=== PATIENT | male | born 1965 | race Caucasian/White ===

== ENCOUNTER → 2017-07-13 | Outpatient (REF) | payer OTHER | LOC: M LAB REF 13:59 | PROVIDERS: ATTEND Surgery | DX: D18.01 Hemangioma of skin and subcutaneous tissue (principal) ==

== ENCOUNTER → 2018-11-14 | Outpatient (CLI) | payer BC, OTHER ==
[2018-11-14 17:34] LABS: BASO % 0.9 % (0.0-1.0); EOS % 0.7 % (0.0-3.0); HEMOGLOBIN 14.3 g/dl (13.5-17.5); LYMPH # 1.4 10^3/uL (1.5-4.5); LYMPH % 31.6 % (24.0-44.0); MEAN CORPUSCULAR HEMOGLOBIN 26.9 pg (27.0-33.0); MEAN CORPUSCULAR HGB CONC 32.5 g/dl (32.0-36.5); MEAN CORPUSCULAR VOLUME 82.9 fl (80.0-96.0); MONO # 0.5 10^3/uL (0.0-0.8); MONO % 10.9 % (0.0-5.0); NEUTROPHILS # 2.5 10^3/uL (1.8-7.7); NEUTROPHILS % 55.7 % (36.0-66.0); PLATELET COUNT, AUTOMATED 169 10^3/uL (150-450); RED BLOOD COUNT 5.31 10^6/uL (4.30-6.10); WHITE BLOOD COUNT 4.4 10^3/uL (4.0-10.0)
[2018-11-14 17:42] LABS: ALBUMIN 4.1 GM/DL (3.2-5.2); BILIRUBIN,TOTAL 0.5 MG/DL (0.2-1.0); CHOLESTEROL RISK RATIO 5.428 (<5); CREATININE FOR GFR 1.49 MG/DL (0.70-1.30); FREE T4 1.27 NG/DL (0.76-1.46); GLOMERULAR FILTRATION RATE 52.9 (>56); POTASSIUM SERUM 4.7 MEQ/L (3.5-5.1); THYROID STIMULATING HORMONE 0.963 uIU/ML (0.358-3.740); TOTAL PROTEIN 7.1 GM/DL (6.4-8.2)
== END ==
LOC: M SMT 11:13
PROVIDERS: ATTEND Family Medicine
DX: Z13.29 Encounter for screening for other suspected endocrine disorder (principal); Z13.0 Encounter for screening for diseases of the blood and blood-forming organs and certain disorders involving the immune mechanism; Z13.220 Encounter for screening for lipoid disorders

== ENCOUNTER → 2020-07-12 | Outpatient (CLI) | payer BC, OTHER ==
[~2020-07-12] MED LIST: LUNE2TAB23 PO
== END ==
LOC: M LABSMTC 10:15
PROVIDERS: ATTEND Anesthesiology
DX: Z01.812 Encounter for preprocedural laboratory examination (principal); Z20.828 Contact with and (suspected) exposure to other viral communicable diseases

== ENCOUNTER 2020-07-17 06:44 | Day surgery (SDC) | payer BC, OTHER ==
[~2020-07-17] VITALS: Ht 177.8 cm; Wt 78.9 kg
[2020-07-17] MEDS ORDERED: NS 1,000 ML IV ONE (07:00)
[2020-07-17] MEDS ORDERED: propofoL 200 MG/20 ML VIAL As Ordered ONE ×2 (07:18→07:56)
[2020-07-17] MEDS ORDERED: LIDOCAINE 2% 100MG/5ML SDV (FOR ANES.) As Ordered ONE (07:18)
--- NOTE | 2020-07-17 07:57 | ROOR ---
Patient Name: Loyd Mcdowell Procedure Date: 07/17/2020 7:25 AM Date of : 1965 Age: 55 Room: [facility] Gender: Male Note Status: Finalized Procedure: Colonoscopy Indications: Screening for colorectal malignant neoplasm Providers: Jose Olson DO Referring MD: Patricia LORA DO Requesting Provider: Medicines: Propofol per Anesthesia Complications: No immediate complications. Procedure: Pre-Anesthesia Assessment: - Prior to the procedure, a History and Physical was performed, and patient medications and allergies were reviewed. The patient is competent. The risks and benefits of the procedure and the sedation options and risks were discussed with the patient. All questions were answered and informed consent was obtained. Patient identification and proposed procedure were verified by the physician, the nurse, the hydrotreater operator and the library cataloging technician in the endoscopy suite. Mental Status Examination: alert and oriented. Airway Examination: normal oropharyngeal airway and neck mobility. Respiratory Examination: clear to auscultation. CV Examination: normal. Prophylactic Antibiotics: The patient does not require prophylactic antibiotics. Prior Anticoagulants: The patient has taken no previous anticoagulant or antiplatelet agents. ASA Grade Assessment: II - A patient with mild systemic disease. After reviewing the risks and benefits, the patient was deemed in satisfactory condition to undergo the procedure. The anesthesia plan was to use monitored anesthesia care (MAC). Immediately prior to administration of medications, the patient was re-assessed for adequacy to receive sedatives. The heart rate, respiratory rate, oxygen saturations, blood pressure, adequacy of pulmonary ventilation, and response to care were monitored throughout the procedure. The physical status of the patient was re-assessed after the procedure. The Colonoscope was introduced through the anus and advanced to the cecum, identified by the ileocecal valve. The colonoscopy was performed without difficulty. The patient tolerated the procedure well. Findings: Non-bleeding internal hemorrhoids were found during retroflexion. The hemorrhoids were mild, small and Grade I (internal hemorrhoids that do not prolapse). The exam was otherwise without abnormality. Impression: - Non-bleeding internal hemorrhoids. - The examination was otherwise normal. - No specimens collected. Recommendation: - Patient has a contact number available for emergencies. The signs and symptoms of potential delayed complications were discussed with the patient. Return to normal activities tomorrow. Written discharge instructions were provided to the patient. - Repeat colonoscopy in 5-10 years for screening purposes. - Return to my office PRN. Procedure Code(s): --- Professional --- G0121, Colorectal cancer screening; colonoscopy on individual not meeting criteria for high risk Diagnosis Code(s): --- Professional --- Z12.11, Encounter for screening for malignant neoplasm of colon K64.0, First degree hemorrhoids CPT copyright 2019 [employer]. All rights reserved. The codes documented in this report are preliminary and upon surgical coder review may be revised to meet current compliance requirements. Jose Olson DO 07/17/2020 7:57:13 AM Electronically signed by Jose Olson DO Number of Addenda: 0 Note Initiated On: 07/17/2020 7:25 AM Estimated Blood Loss: Estimated blood loss: none.
[2020-07-17] MEDS ORDERED: ePHEDrine SULFATE 25 MG/5 ML(5MG/ML) SYRINGE As Ordered ONE (08:05)
[2020-07-17 08:25] VITALS: BP 100/65
== END 2020-07-17 08:50 | disposition home or self-care (01) ==
LOC: M OPP 06:44
PROVIDERS: ATTEND Surgery
DX: Z12.11 Encounter for screening for malignant neoplasm of colon (principal); K64.0 First degree hemorrhoids; Z79.899 Other long term (current) drug therapy

== ENCOUNTER → 2022-09-04 | Outpatient (CLI) | payer BC, OTHER ==
[2022-09-04 13:44] LABS: BASO % 0.7 % (0.0-1.0); EOS # 0.1 10^3/uL (0.0-0.5); EOS % 1.4 % (0.0-3.0); HEMATOCRIT 44.2 % (42.0-52.0); HEMOGLOBIN 13.8 g/dl (13.5-17.5); LYMPH % 21.8 % (24.0-44.0); MEAN CORPUSCULAR HEMOGLOBIN 26.8 pg (27.0-33.0); MEAN CORPUSCULAR HGB CONC 31.2 g/dl (32.0-36.5); MONO # 0.5 10^3/uL (0.0-0.8); MONO % 11.6 % (2.0-8.0); NEUTROPHILS # 2.8 10^3/uL (1.5-8.5); NEUTROPHILS % 64.3 % (36.0-66.0); PLATELET COUNT, AUTOMATED 149 10^3/uL (150-450); RED BLOOD COUNT 5.14 10^6/uL (4.30-6.10); WHITE BLOOD COUNT 4.4 10^3/uL (4.0-10.0)
[2022-09-04 14:21] LABS: ALBUMIN 4.3 G/DL (3.2-5.2); ALKALINE PHOSPHATASE 70 U/L (46-116); ALT/SGPT 45 U/L (7.0-40); AST/SGOT 35 U/L (<34); BILIRUBIN,TOTAL 0.5 MG/DL (0.3-1.2); BLOOD UREA NITROGEN 21 MG/DL (9-23); CALCIUM LEVEL 9.9 MG/DL (8.5-10.1); CARBON DIOXIDE LEVEL 31 MMOL/L (20-31); CHLORIDE LEVEL 102 MMOL/L (98-107); CHOLESTEROL LEVEL 182 MG/DL (<200); CREATININE FOR GFR 1.14 MG/DL (0.70-1.30); FREE T4 1.36 NG/DL (0.89-1.76); GLOMERULAR FILTRATION RATE > 60.0 (>56); GLUCOSE, FASTING 92 MG/DL (60-100); HDL CHOLESTEROL 58.6 MG/DL (>40); NON-HDL-C 123 MG/DL; POTASSIUM SERUM 4.9 MMOL/L (3.5-5.1); SODIUM LEVEL 138 MMOL/L (136-145); TOTAL PROTEIN 7.6 G/DL (5.7-8.2); TRIGLYCERIDES LEVEL 62 MG/DL (<150)
[2022-09-04 14:22] LABS: THYROID STIMULATING HORMONE 1.181 uIU/ML (0.55-4.78)
== END ==
LOC: M LAB 12:26
PROVIDERS: ATTEND Family Medicine
DX: E78.00 Pure hypercholesterolemia, unspecified (principal)

== ENCOUNTER → 2023-09-14 | Outpatient (CLI) | payer BC, OTHER ==
[~2023-09-14] MED LIST changes: -LUNE2TAB23 PO; +LUNE2TAB28 PO
[2023-09-14 13:48] LABS: BASO % 0.7 % (0.0-1.0); EOS % 0.2 % (0.0-3.0); HEMATOCRIT 42.8 % (42.0-52.0); HEMOGLOBIN 13.9 g/dl (13.5-17.5); LYMPH # 1.5 10^3/uL (1.5-5.0); LYMPH % 35.8 % (24.0-44.0); MEAN CORPUSCULAR HEMOGLOBIN 27.7 pg (27.0-33.0); MEAN CORPUSCULAR HGB CONC 32.5 g/dl (32.0-36.5); MEAN CORPUSCULAR VOLUME 85.3 fl (80.0-96.0); MONO # 0.6 10^3/uL (0.0-0.8); MONO % 13.2 % (2.0-8.0); NEUTROPHILS # 2.1 10^3/uL (1.5-8.5); NEUTROPHILS % 50.1 % (36.0-66.0); PLATELET COUNT, AUTOMATED 157 10^3/uL (150-450); RED BLOOD COUNT 5.02 10^6/uL (4.30-6.10); WHITE BLOOD COUNT 4.2 10^3/uL (4.0-10.0)
[2023-09-14 13:54] LABS: ALBUMIN 4.5 G/DL (3.2-5.2); ALKALINE PHOSPHATASE 58 U/L (46-116); ALT/SGPT 43 U/L (7.0-40); AST/SGOT 30 U/L (<34); BILIRUBIN,TOTAL 0.7 MG/DL (0.3-1.2); BLOOD UREA NITROGEN 22 MG/DL (9-23); CALCIUM LEVEL 9.9 MG/DL (8.5-10.1); CARBON DIOXIDE LEVEL 30 MMOL/L (20-31); CHLORIDE LEVEL 104 MMOL/L (98-107); CHOLESTEROL LEVEL 204 MG/DL (<200); CHOLESTEROL RISK RATIO 3.41 (<5); CREATININE FOR GFR 1.24 MG/DL (0.70-1.30); GLOMERULAR FILTRATION RATE > 60.0 (>56); GLUCOSE, FASTING 97 MG/DL (60-100); HDL CHOLESTEROL 59.8 MG/DL (>40); LDL CHOLESTEROL 125.4 MG/DL (<100); NON-HDL-C 144.2 MG/DL; POTASSIUM SERUM 4.6 MMOL/L (3.5-5.1); SODIUM LEVEL 138 MMOL/L (136-145); TOTAL PROTEIN 7.6 G/DL (5.7-8.2); TRIGLYCERIDES LEVEL 94 MG/DL (<150)
[2023-09-14 13:55] LABS: FREE T4 1.37 NG/DL (0.89-1.76)
[2023-09-14 13:56] LABS: THYROID STIMULATING HORMONE 1.784 uIU/ML (0.55-4.78)
== END ==
LOC: M PLALAB 10:38
PROVIDERS: ATTEND Family Medicine
DX: E78.00 Pure hypercholesterolemia, unspecified (principal)